=== PATIENT | female | born 1945 | race Hispanic/Latino ===

== ENCOUNTER 2018-03-27 10:25 | Outpatient (RCR) | payer MEDICARE ==
[~2018-03-27 10:25] MED LIST: ATORVASTATIN CA20 MG PO; HYDROCHLOROTHIA25 MG PO; LISINOPRIL5 MG PO; METFORMIN HCL500 MG PO
[2018-03-27] MEDS ORDERED: MUPIROCIN 2% OINT 22 GM TUBE ONE (13:22)
== END 2018-04-02 ==
LOC: WCC 10:25
PROVIDERS: ATTEND Family Medicine Adult Medicine
DX: E11.8 Type 2 diabetes mellitus with unspecified complications (principal); I87.2 Venous insufficiency (chronic) (peripheral); R23.8 Other skin changes; R60.0 Localized edema; I10 Essential (primary) hypertension; G99.0 Autonomic neuropathy in diseases classified elsewhere; A49.02 Methicillin resistant Staphylococcus aureus infection, unspecified site; E78.00 Pure hypercholesterolemia, unspecified
CPT/HCPCS: 36415; 82948; 87081